=== PATIENT | female | born 1965 | race Two or more races ===

== ENCOUNTER 2022-10-06 18:44 | Emergency (ER) | payer MEDICAID, OTHER ==
[~2022-10-06] VITALS: Ht 157.5 cm; Wt 58.3 kg
[2022-10-06] MEDS ORDERED: BACDST PO ×3 (19:28→19:31)
[2022-10-06] MEDS ORDERED: CLIN-203 PO ×3 (19:28→19:31)
[2022-10-06] MEDS ORDERED: diphenhdrAMINE HCL 25 MG CAP PO ONE (19:30)
[2022-10-06] MEDS ORDERED: DexAMETHasone SOD PHOS 10MG/1ML VIAL INJ IM ONE (19:30)
[2022-10-06] MEDS ORDERED: SULFAMETHOX W/TRIMETH(800/160MG) DS TAB PO ONE (19:30)
[2022-10-06] MEDS ORDERED: CLINDAMYCIN HCL 150 MG CAP PO ONE (19:30)
[2022-10-06 22:08] VITALS: BP 159/87; PULSE 82; RESP 17; TEMP 97.4; O2SAT 98
== END 2022-10-06 22:10 | disposition home or self-care (01) ==
LOC: ER 18:44
DX: L03.115 Cellulitis of right lower limb (principal); S90.861A Insect bite (nonvenomous), right foot, initial encounter; W57.XXXA Bitten or stung by nonvenomous insect and other nonvenomous arthropods, initial encounter; Y93.89 Activity, other specified; Y92.89 Other specified places as the place of occurrence of the external cause; Y99.8 Other external cause status
CPT/HCPCS: 96372; 99284; J1100